=== PATIENT | female | born 1950 | race Two or more races ===

== ENCOUNTER 2017-05-03 18:48 | Emergency (ER) | payer MEDICARE, BC ==
--- NOTE | ~2017-05-03 | ER ---
PATIENT'S NAME: LEFTY [facility] AGE: 67 Y [address] ROOM: [place] [id number] LOCATION: [facility] ADMIT DATE: 05/03/2017 ER/Outpatient Report DISCHARGE DATE: 05/03/2017 FAMILY PHYSICIAN: Chaitanya Hylton MD ATTENDING PHYSICIAN: Antwan Newton Admission date and time documented on the medical record. I saw the patient at 1905 hours. CHIEF COMPLAINT: Left ankle, lower leg pain and swelling. HISTORY OF PRESENT ILLNESS: This patient is a 67-year-old female, who was getting out of the shower and heard a pop crack in her left ankle. She got out, sat down, was making food in the kitchen, and could not get up because of the pain in her left ankle. She could not bear weight. Brought to the emergency room for evaluation. No other injury. No fall. No chest pain, shortness of breath. No abdominal pain, nausea, vomiting, or diarrhea. No incontinence. No lightheadedness, dizziness, syncope, or near syncope. No recent colds, coughs, flus, fever, chills, or sweats. HOME MEDICATIONS: See attached medication list. ALLERGIES: NONE. SOCIAL HISTORY: Nonsmoker, nondrinker. SIGNIFICANT PAST MEDICAL HISTORY: Lung cancer, COPD. OPERATIONS: Partial lung lobectomy, tubal ligation, tonsillectomy, bladder sling placement. REVIEW OF SYSTEMS: All systems reviewed by me are negative with the exception of those discussed in the history of present illness. PHYSICAL EXAMINATION: VITAL SIGNS: Temperature 99.1, pulse 73, respirations 16, blood pressure 169/79, O2 saturation on room air is 92%. LUNGS: Clear. PATIENT'S NAME: FRANCISCO OLEAR [facility] AGE: 67 Y [address] ROOM: [place], [place] [id number] LOCATION: [facility] ADMIT DATE: 05/03/2017 ER/Outpatient Report DISCHARGE DATE: 05/03/2017 FAMILY PHYSICIAN: Chaitanya Hylton MD ATTENDING PHYSICIAN: Antwan Newton HEART: Regular. ABDOMEN: Soft, moderately obese, nontender, good bowel tones. No organomegaly or abnormal mass palpable. No CVA tenderness. PELVIS: Stable, nontender. EXTREMITIES: Moves all 4 extremities except painful with any movement of the left leg. Pain is mainly in the distal half of the posterior left lower leg and in the ankle area. Painful with any little movement. Pulses intact. NEUROVASCULAR: Intact. Capillary refill intact. There is some mild swelling over the lateral malleolar area. Range of motion of the ankles is markedly restricted because of pain. Achilles tendon appears to be intact, but it is painful. No pain in the calf muscle or anterior tibia. Knees intact. Upper legs intact. Hips intact. No low back pain. LABORATORY DATA AND X-RAYS: X-ray of the left tib-fib showed no fracture or dislocation. X-ray of the left ankle showed no fracture or dislocation. We will review all plain films with the radiologist. Laboratory: CMS was normal except for an elevated chloride of 113, elevated glucose 134, low anion gap of 7.8. CPK was 100. CRP was less than 0.29. White count was 4300, 62 segs, 24 lymphs, 7 monos, 6 eos, 1 baso. Hemoglobin is 12.8, hematocrit 39.0, platelet count is 196,000. Sedimentation rate is normal at 9. D-dimer was normal 0.54. EMERGENCY DEPARTMENT COURSE: I did give the patient two 5/325 [place] for pain here in the emergency department. It markedly improved her pain. IMPRESSION: Left ankle, left lower leg pain, etiology uncertain, but suspect that she strained her Achilles tendon. She may have torn the Achilles tendon partially. PLAN: I did place the patient in a CAM walking boot. She is to use crutches or walker with nonweightbearing. Ice and elevation intermittently as needed. Naprosyn 500 mg b.i.d. for 10 days. [place] 7.5/325 as needed for pain. Follow up with personal physician in 2 to 5 days or sooner if needed. May need to see orthopedic surgeon. Discussion ensued with the patient and her family regarding my findings and recommendations, they understand. ANTWAN NEWTON MD PATIENT'S NAME: VARGAS OLEA [facility] AGE: 67 Y [address] ROOM: [place] [id number] LOCATION: [facility] ADMIT DATE: 05/03/2017 ER/Outpatient Report DISCHARGE DATE: 05/03/2017 FAMILY PHYSICIAN: Chaitanya Hylton MD ATTENDING PHYSICIAN: Antwan Newton/fabian /[id number] d: 05/04/17 0123 t: 05/04/17 1835, OUTPATIENT REPORT
[2017-05-03 19:29] LABS: BASOPHIL % 0.7 %; EOSINOPHIL # 0.2 K/uL (0.0-0.5); EOSINOPHIL % 5.5 %; HEMOGLOBIN 12.8 g/dL (10.0-15.0); IMMATURE GRANULOCYTE % 0.2 %; LYMPHOCYTE % 23.8 %; MCH 28.6 pg (27.0-34.0); MCHC 32.8 gm/dL (32.0-36.5); MCV 87.2 fl (83.0-98.0); MONOCYTE # 0.3 K/uL (0.0-1.0); MONOCYTE % 7.4 %; MPV 9.2 fl (9.4-12.4); NEUTROPHIL # (ANC) 2.7 K/uL (1.8-7.8); NEUTROPHIL % 62.4 %; NRBC % 0 /100WBC (0-0.00); PLATELET COUNT 196 K/uL (150-450); RBC 4.47 M/uL (3.50-5.50); RDW-CV 13.2 % (11.9-14.6); WBC 4.3 K/uL (4.0-11.0)
[2017-05-03 19:47] LABS: ALBUMIN 3.6 gm/dL (3.5-5.0); ALK PHOS 95 IU/L (33-138); ALT 27 IU/L (12-78); ANION GAP 7.8 (10.0-19.0); AST 15 IU/L (10-40); BLOOD UREA NITROGEN 24 mg/dL (6-24); CALCIUM 8.8 mg/dL (8.5-10.5); CHLORIDE 113 mMol/L (96-110); CO2 27 mMol/L (22-32); CPK 100 IU/L (21-215); CREATININE 1.1 mg/dL (0.5-1.1); ESTIMATED GFR (MDRD EQUATION) 49; POTASSIUM 3.8 mMol/L (3.7-5.1); SODIUM 144 mMol/L (135-145); TOTAL BILIRUBIN 0.4 mg/dL (0.0-1.5); TOTAL PROTEIN 6.8 g/dL (6.0-8.4)
== END 2017-05-03 20:49 | disposition disaster alternative care site (69) ==
LOC: GMED 18:48
PROVIDERS: Emergency Medicine
DX: M25.572 Pain in left ankle and joints of left foot (principal); J44.9 Chronic obstructive pulmonary disease, unspecified; Z98.51 Tubal ligation status; Z90.89 Acquired absence of other organs; Z79.899 Other long term (current) drug therapy